=== PATIENT | female | born 1945 | race Caucasian/White ===

== ENCOUNTER → 2016-05-26 | Outpatient (CLI) | payer MEDICARE ==
--- NOTE | 2016-05-26 11:13 | REP ---
BILATERAL MAMMOGRAM, BASELINE STUDY: MLO and CC views of both breasts are performed. Mild scattered fibroglandular tissue is seen bilaterally. There is a lobulated nodule in the outer left breast measuring 1 cm in maximum diameter. Margins appear fairly smooth and well defined. Linear calcification is seen in the wall of the nodule inferomedially. There is no other evidence of mass or clustered microcalcifications. IMPRESSION: ACR 0 incomplete. Lobulated 1 cm nodule outer left breast. Recommend spot compression views and ultrasound to further evaluate. BI-RADS/ACR category 0 mammogram, incomplete. Additional imaging and/or prior images are needed before a final assessment can be assigned. This mammogram was interpreted with the aid of an FDA-approved computer-aided detection system. A. Negative x-ray reports should not delay biopsy if a dominant or clinically suspicious mass is present. B. Four to eight percent of cancers are not identified by x-ray. C. Adenosis and dense breasts may obscure an underlying neoplasm. The patient states she/he had a clinical breast exam in August 2015. The patient letter being requested is M0.
--- NOTE | 2016-05-27 09:07 | DEXA ---
AP SPINE L1 - L4 1.178 -0.1 1.6 LT FEMUR TOTAL 0.910 -0.8 0.7 RT FEMUR TOTAL 0.894 -0.9 0.6 TOTAL BODY TOTAL OTHER DUAL FEMUR FRAX* ASSESSMENT Risk factors: History of adult fractures. 10 year probability of fracture Major osteoporotic fracture 15.2 % Hip fracture 2.0 % COMMENTS: Normal bone densitometry of the spine. There is low bone density of the hips. FOLLOW-UP: Recommendation for the next bone density exam: 2 years. CHELE
== END ==
LOC: M WHC 09:39
PROVIDERS: ATTEND Physician Assistant
DX: M85.851 Other specified disorders of bone density and structure, right thigh (principal); M85.852 Other specified disorders of bone density and structure, left thigh; Z12.31 Encounter for screening mammogram for malignant neoplasm of breast
CPT/HCPCS: 77080; G0202

== ENCOUNTER → 2016-06-14 | Outpatient (CLI) | payer MEDICARE ==
--- NOTE | 2016-06-14 15:21 | REP ---
DIAGNOSTIC MAMMOGRAM OF THE LEFT BREAST WITH LEFT BREAST ULTRASOUND: Diagnostic mammogram of the left breast performed with spot compression views obtained. Correlating with the recent mammogram of 05/26/2016 there is an oval smoothly marginated well defined nodule in the outer left breast. Real-time sonographic evaluation of the outer left breast demonstrates a superficial oval cyst containing some low level echoes diffusely. This appears benign. It measures 8 x 10 x 4 mm. IMPRESSION: ACR 2 benign. The nodule in the outer left breast corresponds to a cyst by ultrasound. Recommend followup mammogram in 1 year. The patient letter being requested is M1. Signed by Chetan Kim MD 06/14/2016 04:46 P
== END ==
LOC: M RAD 12:54
PROVIDERS: ATTEND Physician Assistant
DX: N60.02 Solitary cyst of left breast (principal)
CPT/HCPCS: 76642; G0206

== ENCOUNTER 2017-04-18 08:22 | Emergency (ER) | payer MEDICARE ==
[2017-04-18] MEDS: EMLA CREAM 5GM (LIDOCAINE/PRILOCAINE) TOP (08:52)
[2017-04-18] MEDS ORDERED: POLYSPORIN TOPICAL OINTMENT 15GM As Ordered (09:19)
== END 2017-04-18 09:48 | disposition home or self-care (01) ==
LOC: M ED 08:22
DX: S01.01XA Laceration without foreign body of scalp, initial encounter (principal); S00.03XA Contusion of scalp, initial encounter; W19.XXXA Unspecified fall, initial encounter; Y92.099 Unspecified place in other non-institutional residence as the place of occurrence of the external cause; Y93.9 Activity, unspecified; F32.9 Major depressive disorder, single episode, unspecified; Z79.899 Other long term (current) drug therapy
CPT/HCPCS: 70450

== ENCOUNTER 2017-10-23 18:58 | Emergency (ER) | payer MEDICARE ==
[2017-10-23] MEDS: ONDANSETRON 4MG/2ML VIAL (J2405) IV ×2 (20:17)
[2017-10-23] MEDS: HYDROMORPHONE HCL 0.5 MG/ 0.5 ML SYRINGE (J1170 PER 1) IV ×2 (20:20)
[2017-10-23] MEDS: PERCOCET 5MG/325MG TAB PO ×2 (21:06)
[2017-10-23] MEDS: OXYCODONE/APAP 5MG/325MG(BULK FOR ED) 1 TABLET PO ×2 (21:21)
== END 2017-10-23 22:00 | disposition home or self-care (01) ==
LOC: M ED 22:00
DX: S42.292A Other displaced fracture of upper end of left humerus, initial encounter for closed fracture (principal); V03.99XA Pedestrian with other conveyance injured in collision with car, pick-up truck or van, unspecified whether traffic or nontraffic accident, initial encounter; Y92.099 Unspecified place in other non-institutional residence as the place of occurrence of the external cause; Y93.9 Activity, unspecified; Y99.9 Unspecified external cause status; F32.9 Major depressive disorder, single episode, unspecified; F41.9 Anxiety disorder, unspecified; Z79.899 Other long term (current) drug therapy; Z88.6 Allergy status to analgesic agent
CPT/HCPCS: J2405

== ENCOUNTER → 2018-11-23 | Outpatient (REF) | payer MEDICARE ==
[~2018-11-23] MED LIST: OXYC1TAB23 PO; SERT-155; TRAM50TA2
[2018-11-23 12:40] LABS: BASO # 0.1 10^3/uL (0.0-0.2); BASO % 1.6 % (0.0-1.0); EOS # 0.2 10^3/uL (0.0-0.5); EOS % 4.1 % (0.0-3.0); HEMATOCRIT 42.9 % (36.0-47.0); LYMPH # 2.2 10^3/uL (1.5-5.0); LYMPH % 39.3 % (24.0-44.0); MEAN CORPUSCULAR HEMOGLOBIN 29.1 pg (27.0-33.0); MEAN CORPUSCULAR HGB CONC 32.6 g/dl (32.0-36.5); MEAN CORPUSCULAR VOLUME 89.2 fl (80.0-96.0); MONO # 0.5 10^3/uL (0.0-0.8); MONO % 9.6 % (0.0-5.0); NEUTROPHILS # 2.6 10^3/uL (1.5-8.5); NEUTROPHILS % 45.2 % (36.0-66.0); PLATELET COUNT, AUTOMATED 236 10^3/uL (150-450); RED BLOOD COUNT 4.81 10^6/uL (4.00-5.40); WHITE BLOOD COUNT 5.6 10^3/uL (4.0-10.0)
[2018-11-23 13:36] LABS: ALBUMIN 3.6 GM/DL (3.2-5.2); ALT/SGPT 21 U/L (12-78); BILIRUBIN,TOTAL 0.4 MG/DL (0.2-1.0); BLOOD UREA NITROGEN 18 MG/DL (7-18); CALCIUM LEVEL 8.8 MG/DL (8.8-10.2); CARBON DIOXIDE LEVEL 28 MEQ/L (21-32); CHLORIDE LEVEL 109 MEQ/L (98-107); CHOLESTEROL LEVEL 195 MG/DL (<200); GLOMERULAR FILTRATION RATE > 60.0 (>39); GLUCOSE, FASTING 89 MG/DL (70-100); HDL CHOLESTEROL 65 MG/DL (>40); LDL CHOLESTEROL 111 MG/DL (<100); NON-HDL-C 130 MG/DL; POTASSIUM SERUM 4.1 MEQ/L (3.5-5.1); SODIUM LEVEL 144 MEQ/L (136-145); TOTAL PROTEIN 6.6 GM/DL (6.4-8.2); TRIGLYCERIDES LEVEL 93 MG/DL (<150)
== END ==
LOC: M SFHCLERA 08:44
PROVIDERS: ATTEND Nurse Practitioner Family
DX: Z13.1 Encounter for screening for diabetes mellitus (principal); Z13.220 Encounter for screening for lipoid disorders; E78.00 Pure hypercholesterolemia, unspecified

== ENCOUNTER 2019-07-07 09:54 | Emergency (ER) | payer MEDICARE, OTHER ==
[~2019-07-07] VITALS: Ht 160 cm; Wt 61.0 kg
[~2019-07-07 09:54] MED LIST changes: -SERT-155; +SERT50TA29
[2019-07-07] MEDS ORDERED: AMLO2.5T3 (10:02)
[2019-07-07] MEDS ORDERED: SERT50TA29 (10:02)
[2019-07-07] MEDS: METOPROLOL 5 MG/5 ML VIAL IV SCH ×3 (10:20→10:45)
[2019-07-07 10:36] LABS: BASO # 0.1 10^3/uL (0.0-0.2); BASO % 1.1 % (0.0-1.0); EOS # 0.1 10^3/uL (0.0-0.5); EOS % 1.6 % (0.0-3.0); HEMOGLOBIN 12.5 g/dl (12.0-15.5); LYMPH # 1.7 10^3/uL (1.5-5.0); LYMPH % 22.8 % (24.0-44.0); MEAN CORPUSCULAR HEMOGLOBIN 28.8 pg (27.0-33.0); MEAN CORPUSCULAR HGB CONC 32.9 g/dl (32.0-36.5); MEAN CORPUSCULAR VOLUME 87.6 fl (80.0-96.0); MONO # 0.8 10^3/uL (0.0-0.8); MONO % 10.3 % (0.0-5.0); NEUTROPHILS # 4.7 10^3/uL (1.5-8.5); NEUTROPHILS % 63.9 % (36.0-66.0); PLATELET COUNT, AUTOMATED 343 10^3/uL (150-450); RED BLOOD COUNT 4.34 10^6/uL (4.00-5.40); WHITE BLOOD COUNT 7.4 10^3/uL (4.0-10.0)
[2019-07-07 10:42] LABS: INR 1.04; PARTIAL THROMBOPLASTIN TIME 27.5 SECONDS (25.0-38.4); PROTHROMBIN TIME 13.4 SECONDS (11.8-14.0)
--- NOTE | 2019-07-07 11:07 | REP ---
Clinical: Cough and dyspnea . Comparison: None . Findings: The mediastinum and cardiac silhouette are stable and within normal limits for portable technique. The lung holguin demonstrate chronic-appearing interstitial changes and evidence for underlying emphysematous disease without focal consolidation, effusion, or pneumothorax. Minimal left basilar atelectasis cannot be excluded. Impression: Chronic-appearing changes. No focal consolidation or effusion. Electronically Signed by Joe Alas MD 07/07/2019 10:58 A
[2019-07-07 11:12] LABS: ALBUMIN 3.4 GM/DL (3.2-5.2); ALT/SGPT 33 U/L (12-78); BILIRUBIN,DIRECT 0.2 MG/DL (0.0-0.2); BILIRUBIN,TOTAL 0.5 MG/DL (0.2-1.0); CK-MB VALUE MASS 2.4 NG/ML (<3.6); CPK CREATINE PHOSPHOKINASE 61 U/L (26-192); FREE T4 1.53 NG/DL (0.76-1.46); LIPASE 263 U/L (73-393); MB/CK RELATIVE INDEX 3.93 (< OR =4); NT-PRO BNP 1263 PG/ML (<125); THYROID STIMULATING HORMONE < 0.005 uIU/ML (0.358-3.740); TOTAL PROTEIN 7.2 GM/DL (6.4-8.2); TROPONIN I < 0.02 NG/ML (< 0.10)
[2019-07-07] MEDS ORDERED: APIXABAN 5 MG TAB (ELIQUIS) PO ONE (11:45)
[2019-07-07] MEDS ORDERED: NADOLOL 20MG TABLET PO ONE (12:10)
[2019-07-07] MEDS ORDERED: NADO40TA PO (12:29)
[2019-07-07] MEDS ORDERED: ELIQ5TAB PO (12:29)
[2019-07-07 12:45] VITALS: BP 161/85
[2019-07-07 12:49] VITALS: BP 161/85
--- NOTE | 2019-07-07 19:30 | ECGEPIP ---
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
--- NOTE | 2019-07-07 19:31 | ECGEPIP ---
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
== END 2019-07-07 13:02 | disposition home or self-care (01) ==
LOC: M ED 09:54
DX: I48.91 Unspecified atrial fibrillation (principal); R06.09 Other forms of dyspnea; I10 Essential (primary) hypertension; Z87.891 Personal history of nicotine dependence; Z88.5 Allergy status to narcotic agent

== ENCOUNTER → 2019-08-01 | Outpatient (CLI) | payer MEDICARE ==
[~2019-08-01] MED LIST changes: +AMLO2.5T3; +ELIQ5TAB PO; +NADO40TA PO
--- NOTE | 2019-08-02 14:19 | REP ---
THYROID UPTAKE AND SCAN: Following the oral administration of 427.0 microcuries iodine 123 as sodium iodide, thyroid uptake is measured. The 2-hour uptake is 4.2%, normal range is 6-12%. 25-hour uptake is 20.85%, normal, range 25-35%. Thyroid scan shows both lobes to be relatively normal in size, measuring slightly greater than 4 cm in length. A nodular area of uptake is seen along the medial left lower pole approximately 3 cm in diameter. This could represent a warm nodule. Recommend correlation with thyroid ultrasound. Electronically Signed by Chetan Kim MD 08/02/2019 05:05 P
== END ==
LOC: M RAD 10:11
PROVIDERS: ATTEND Family Medicine
DX: E05.90 Thyrotoxicosis, unspecified without thyrotoxic crisis or storm (principal)
CPT/HCPCS: 78014; A9516

== ENCOUNTER → 2019-08-07 | Outpatient (REF) | payer MEDICARE ==
[2019-08-08 12:27] LABS: THYROID STIMULATING HORMONE < 0.005 uIU/ML (0.358-3.740)
== END ==
LOC: M SFHCLERA 15:59
PROVIDERS: ATTEND Family Medicine
DX: E05.90 Thyrotoxicosis, unspecified without thyrotoxic crisis or storm (principal)

== ENCOUNTER → 2019-08-17 | Outpatient (REF) | payer MEDICARE ==
[2019-08-17 18:47] LABS: ALBUMIN 3.7 GM/DL (3.2-5.2); BILIRUBIN,TOTAL 0.3 MG/DL (0.2-1.0); CALCIUM LEVEL 9.4 MG/DL (8.8-10.2); CREATININE FOR GFR 1.21 MG/DL (0.55-1.30); GLOMERULAR FILTRATION RATE 46.4 (>39); POTASSIUM SERUM 4.7 MEQ/L (3.5-5.1); TOTAL PROTEIN 7.1 GM/DL (6.4-8.2)
== END ==
LOC: M SFHCLERA 15:06
PROVIDERS: ATTEND Family Medicine
DX: R06.00 Dyspnea, unspecified (principal)

== ENCOUNTER → 2019-08-22 | Outpatient (CLI) | payer MEDICARE ==
[2019-08-22 16:28] LABS: HEMATOCRIT 40.6 % (36.0-47.0); MEAN CORPUSCULAR HEMOGLOBIN 27.9 pg (27.0-33.0); MEAN CORPUSCULAR VOLUME 87.1 fl (80.0-96.0); PLATELET COUNT, AUTOMATED 244 10^3/uL (150-450); RED BLOOD COUNT 4.66 10^6/uL (4.00-5.40); WHITE BLOOD COUNT 6.6 10^3/uL (4.0-10.0)
== END ==
LOC: M LRY 14:19
PROVIDERS: ATTEND Nurse Practitioner Family
DX: I48.91 Unspecified atrial fibrillation (principal)

== ENCOUNTER → 2019-08-29 | Outpatient (CLI) | payer MEDICARE ==
--- NOTE | 2019-08-29 10:31 | PFTRPT ---
Height: 63.00 Inches Weight: 116.00 Lbs BSA: 1.53 Diagnosis: R06 DATE OF PROCEDURE: 08/29/2019 ORDERED BY: Dr. Yovana Jade Spirometry: Pre and post bronchodilator study of excellent technical quality. Some difficulty with required maneuvers was identified. Forced vital capacity reduced. FEV1 out of proportion. Obstructive index is, therefore, reduced. Flow Volume Loop: Expiratory limb of the flow volume loop consistent with flow rate limitation. Significant bronchodilator response is identified. Lung Volumes: Total lung capacity normal. Residual volume consistent with air trapping. Diffusing Capacity: Diffusing capacity severely reduced and does correct for alveolar volume. Hemoglobin: Hemoglobin acceptable at 14.6. Airway Mechanics: Airway resistance elevated with a concomitant decrease in airway conductance. IMPRESSION: Moderate obstructive ventilatory impairment with underlying air trapping. Favorable bronchodilator response. Diffusing capacity corrects for alveolar volume. MTDD
== END ==
LOC: M CARPUL 09:37
PROVIDERS: ATTEND Family Medicine
DX: R06.00 Dyspnea, unspecified (principal)

== ENCOUNTER → 2019-09-13 | Outpatient (CLI) | payer MEDICARE ==
[~2019-09-13] MED LIST changes: +ISOVUE-370 76% 100ML VIAL As Ordered ONE
--- NOTE | 2019-09-14 00:41 | REP ---
REASON: Dyspnea. There are no priors for comparison. CONTRAST: 100 mL Isovue-370. There are borderline mediastinal and right hilar lymph nodes. There are no pleural or pericardial effusions. There is a large nodule arising from the inferior aspect of the left lobe of the thyroid gland measuring 2.7 cm. The imaged osseous structures are within normal limits for the patient's age. Evaluation of the lung holguin shows rather marked appearing chronic emphysematous changes with evidence of parenchymal bullae and pleural blebs, particularly in the lung apical regions. Scattered asymmetric densities are seen bilaterally. There is a pleural-based 6 mm sized nodule in the left lower lobe. There is evidence of biapical pleural parenchymal scarring. IMPRESSION: 1. Borderline adenopathy, as described above. 2. A 6 mm sized pleural-based nodule in the left lower lobe. Other 2 and 3 mm sized nodules are scattered throughout the lung holguin, too numerous to count or individually assess. According to the revised Fleischner Society criteria, the 6 mm sized nodule represents a category 4A lesion, for which a 3-month followup CT examination of the chest is recommended since there are no priors for comparison. 3. Rather advanced appearing emphysematous changes, as described above. 4. There is a thyroid nodule on the left, as described above. Followup with thyroid ultrasonography is recommended. Electronically Signed by Ye Shelton DO 09/14/2019 08:55 A
== END ==
LOC: M RAD 14:10
PROVIDERS: ATTEND Family Medicine
DX: R06.00 Dyspnea, unspecified (principal)
CPT/HCPCS: 71260; Q9967

== ENCOUNTER → 2019-10-05 | Outpatient (REF) | payer MEDICARE ==
[~2019-10-05] MED LIST changes: -ISOVUE-370 76% 100ML VIAL As Ordered ONE
[2019-11-22 13:56] LABS: FREE T4 0.82 NG/DL (0.76-1.46); THYROID STIMULATING HORMONE 2.59 uIU/ML (0.358-3.740)
== END ==
LOC: M PLALAB 13:19
PROVIDERS: ATTEND Internal Medicine Endocrinology, Diabetes & Metabolism
DX: E05.20 Thyrotoxicosis with toxic multinodular goiter without thyrotoxic crisis or storm (principal)

== ENCOUNTER → 2019-12-12 | Outpatient (CLI) | payer MEDICARE ==
--- NOTE | 2019-12-18 09:20 | REP ---
CT CHEST WITHOUT CONTRAST HISTORY: Pulmonary nodule. COMPARISON: Chest CT study 09/13/2019. CT FINDINGS: There is a 2.9 cm left thyroid nodule again seen along the inferior aspect of the gland unchanged. Granulomatous lymph node calcifications are seen in the pretracheal and precarinal region of the mediastinum. There are granulomatous calcifications scattered about the spleen. The gallbladder is surgically absent. Normal adrenal glands are seen. No pleural or pericardial effusion is seen. No new hilar or mediastinal mass or adenopathy has developed. There is advanced hyperinflation emphysema chronic obstructive pulmonary disease (COPD) change bilaterally. A 6-mm nodule pleural-based in the left lower lobe is again seen unchanged compared to the prior study of 09/13/2019. This is displayed on Page 71 of 102 in Series 201. There are scattered smaller nodules again noted unchanged. No new pulmonary nodule is appreciated. No infiltrate or mass lesion is seen. Study is otherwise unremarkable. IMPRESSION: Stable chest CT findings. Granulomatous calcifications. Scattered subcentimeter pulmonary nodules the larges of which is 6 mm left lower lobe. Repeat CT study suggested in six to nine months. Stable left thyroid nodule also noted. MTDD
== END ==
LOC: M RAD 11:35
PROVIDERS: ATTEND Family Medicine
DX: R91.1 Solitary pulmonary nodule (principal)

== ENCOUNTER → 2019-12-26 | Outpatient (CLI) | payer MEDICARE ==
[2019-12-26 16:17] LABS: FREE T4 0.83 NG/DL (0.76-1.46); THYROID STIMULATING HORMONE 0.638 uIU/ML (0.358-3.740)
== END ==
LOC: M LAB 14:37
PROVIDERS: ATTEND Internal Medicine Endocrinology, Diabetes & Metabolism
DX: E05.20 Thyrotoxicosis with toxic multinodular goiter without thyrotoxic crisis or storm (principal)

== ENCOUNTER → 2020-03-20 | Outpatient (CLI) | payer MEDICARE ==
[2020-03-20 17:47] LABS: FREE T4 0.98 NG/DL (0.76-1.46); THYROID STIMULATING HORMONE 0.205 uIU/ML (0.358-3.740)
== END ==
LOC: M LAB 16:06
PROVIDERS: ATTEND Internal Medicine Endocrinology, Diabetes & Metabolism
DX: E05.20 Thyrotoxicosis with toxic multinodular goiter without thyrotoxic crisis or storm (principal)

== ENCOUNTER → 2020-05-06 | Outpatient (CLI) | payer MEDICARE ==
[2020-05-06 12:50] LABS: FREE T4 0.95 NG/DL (0.76-1.46); THYROID STIMULATING HORMONE 0.461 uIU/ML (0.358-3.740)
== END ==
LOC: M LAB 11:40
PROVIDERS: ATTEND Nurse Practitioner Family
DX: E05.20 Thyrotoxicosis with toxic multinodular goiter without thyrotoxic crisis or storm (principal)

== ENCOUNTER → 2020-07-15 | Outpatient (CLI) | payer MEDICARE ==
--- NOTE | 2020-07-15 13:18 | REP ---
INDICATION: PULMONARY NODULE COMPARISON: Multiple the latest 12/12/2019 TECHNIQUE: Standard helical technique without the administration of intravenous contrast FINDINGS: The thyroid nodule seen on the prior exams is unchanged. Benign mediastinal calcifications are again noted status quo. The imaged upper abdomen and imaged osseous structures are unchanged. This is with the exception of a now partially imaged at least 3.6 cm sized round smoothly marginated low-density structure having slightly higher than water density Hounsfield unit readings. The osseous structures are stable and intact Evaluation of the lung holguin shows advanced but stable appearing emphysematous changes with parenchymal bulla and pleural blebs status quo. There are multiple stable scattered pulmonary nodules. No new abnormal nodules, masses, or opacities have developed. There are stable areas of irregular pleural thickening. IMPRESSION: Stable lung rads category 2 S according to the revised Fleischner society criteria. There is a partially imaged simple appearing right renal cyst as described above, however, ultrasonography is recommended for complete evaluation. <Electronically signed by Ye Shelton > 07/15/20 [id number]
== END ==
LOC: M RAD 10:26
PROVIDERS: ATTEND Family Medicine
DX: R91.1 Solitary pulmonary nodule (principal); N28.1 Cyst of kidney, acquired

== ENCOUNTER → 2020-08-19 | Outpatient (CLI) | payer MEDICARE ==
--- NOTE | 2020-08-19 13:16 | REP ---
INDICATION: CYST RT KIDNEY. COMPARISON: No prior ultrasound. Prior CT 07/15/2020 showed a partially imaged right renal cyst. TECHNIQUE: Transabdominal and intercostal scanning FINDINGS: Multiple ultrasonographic images of the right kidney show the right kidney to measure 8.3 x 4.5 x 3.9 cm. . The renal cortical echotexture is unremarkable. There are no masses. There is good corticomedullary differentiation. There is no hydronephrosis. There are no perinephric fluid collections. In the interpolar region is a 3.4 cm sized round anechoic structure which exhibits posterior wall enhancement and increased through transmission. There are no septations or mural nodules. Multiple ultrasonographic images of the left kidney show the left kidney to measure 8.5 x 3.9 x 4.7 cm.. The renal cortical echotexture is unremarkable. There are no masses. There is good corticomedullary differentiation. There is no hydronephrosis. There are no perinephric fluid collections. IMPRESSION: Simple Bosniak class 1 right renal cyst as described above. <Electronically signed by Ye Shelton > 08/19/20 [id number]
== END ==
LOC: M RAD 12:26
PROVIDERS: ATTEND Family Medicine
DX: N28.1 Cyst of kidney, acquired (principal)

== ENCOUNTER → 2020-08-22 | Outpatient (CLI) | payer MEDICARE ==
[2020-08-22 18:14] LABS: THYROID STIMULATING HORMONE 0.359 uIU/ML (0.358-3.740)
== END ==
LOC: M LAB 17:05
PROVIDERS: ATTEND Internal Medicine Endocrinology, Diabetes & Metabolism
DX: E05.20 Thyrotoxicosis with toxic multinodular goiter without thyrotoxic crisis or storm (principal)

== ENCOUNTER → 2020-10-04 | Outpatient (CLI) | payer MEDICARE ==
[2020-10-04 16:27] LABS: THYROID STIMULATING HORMONE 0.524 uIU/ML (0.358-3.740)
== END ==
LOC: M LAB 15:34
PROVIDERS: ATTEND Nurse Practitioner Family
DX: E05.20 Thyrotoxicosis with toxic multinodular goiter without thyrotoxic crisis or storm (principal)

== ENCOUNTER → 2020-10-04 | Outpatient (CLI) | payer MEDICARE ==
[2020-10-04 15:52] LABS: BASO # 0.1 10^3/uL (0.0-0.2); BASO % 1.3 % (0.0-1.0); EOS # 0.2 10^3/uL (0.0-0.5); EOS % 2.7 % (0.0-3.0); HEMOGLOBIN 13.4 g/dl (12.0-15.5); LYMPH # 2.2 10^3/uL (1.5-5.0); LYMPH % 35.3 % (24.0-44.0); MEAN CORPUSCULAR HEMOGLOBIN 29.6 pg (27.0-33.0); MEAN CORPUSCULAR HGB CONC 32.7 g/dl (32.0-36.5); MEAN CORPUSCULAR VOLUME 90.5 fl (80.0-96.0); MONO # 0.6 10^3/uL (0.0-0.8); MONO % 9.8 % (2.0-8.0); NEUTROPHILS # 3.2 10^3/uL (1.5-8.5); NEUTROPHILS % 50.7 % (36.0-66.0); PLATELET COUNT, AUTOMATED 247 10^3/uL (150-450); RED BLOOD COUNT 4.53 10^6/uL (4.00-5.40); WHITE BLOOD COUNT 6.3 10^3/uL (4.0-10.0)
[2020-10-04 16:20] LABS: ALBUMIN 3.6 GM/DL (3.2-5.2); BILIRUBIN,TOTAL 0.3 MG/DL (0.2-1.0); CHOLESTEROL RISK RATIO 3.218 (<5); CREATININE FOR GFR 0.98 MG/DL (0.55-1.30); GLOMERULAR FILTRATION RATE 59.1 (>39); POTASSIUM SERUM 3.9 MEQ/L (3.5-5.1); TOTAL PROTEIN 6.8 GM/DL (6.4-8.2)
== END ==
LOC: M LAB 15:32
PROVIDERS: ATTEND Student in an Organized Health Care Education/Training Program
DX: I10 Essential (primary) hypertension (principal); E78.2 Mixed hyperlipidemia; Z00.00 Encounter for general adult medical examination without abnormal findings

== ENCOUNTER → 2020-12-03 | Outpatient (CLI) | payer MEDICARE ==
[2020-12-03 18:39] LABS: FREE T4 0.95 NG/DL (0.76-1.46); THYROID STIMULATING HORMONE 0.353 uIU/ML (0.358-3.740)
== END ==
LOC: M LAB 15:51
PROVIDERS: ATTEND Nurse Practitioner Family
DX: E05.20 Thyrotoxicosis with toxic multinodular goiter without thyrotoxic crisis or storm (principal)

== ENCOUNTER → 2021-01-28 | Outpatient (CLI) | payer MEDICARE ==
--- NOTE | 2021-01-28 15:30 | REPMRS ---
Patient History The patient states she has not had a clinical breast exam in over a year. Family history of prostate cancer at age 50 or over in father. Tomosynthesis is performed. Volpara breast density is b. [facility] lifetime risk of breast cancer 2.8%. Patient states no breast complaints today. Patient has signed MRS History Sheet. Digital Woman Screen Mammo: January 28, 2021 - Exam #: [id number] Bilateral CC and MLO view(s) were taken. Technologist: Sabine Fine Technologist Prior study comparison: June 14, 2016, left breast digital mammo diagnostic unilateral, performed at [facility]. May 26, 2016, digital woman screen mammo performed at [facility]. FINDINGS: There are scattered fibroglandular densities. There is a fairly symmetric fibroglandular pattern in both breasts. There has been no interval development of masses, areas of architectural distortion or clusters of microcalcifications typical of malignancy. The previously noted cyst in the lateral left breast has decreased in size. Assessment: BI-RADS/ACR category 2 mammogram. Benign Findings. Recommendation Routine screening mammogram of both breasts in 1 year (for women over age 40). This mammogram was interpreted with the aid of an FDA-approved computer-aided dectection system. Electronically Signed By: Chetan Kim MD 01/28/21 [id number]
== END ==
LOC: M WHC 14:00
PROVIDERS: ATTEND Student in an Organized Health Care Education/Training Program
DX: Z12.31 Encounter for screening mammogram for malignant neoplasm of breast (principal)

== ENCOUNTER → 2021-11-12 | Outpatient (REF) | payer MEDICARE | LOC: M LAB REF 11:38 | PROVIDERS: ATTEND Internal Medicine Pulmonary Disease | DX: J44.9 Chronic obstructive pulmonary disease, unspecified (principal) ==

== ENCOUNTER → 2021-11-20 | Outpatient (CLI) | payer MEDICARE ==
[2021-11-20 12:05] LABS: CREATININE FOR GFR 0.99 MG/DL (0.55-1.30)
[2021-11-20 12:06] LABS: ALBUMIN 3.7 GM/DL (3.2-5.2); BILIRUBIN,TOTAL 0.3 MG/DL (0.2-1.0); CALCIUM LEVEL 9.3 MG/DL (8.8-10.2); GLOMERULAR FILTRATION RATE 58.2 (>39); POTASSIUM SERUM 3.7 MEQ/L (3.5-5.1); TOTAL PROTEIN 6.9 GM/DL (6.4-8.2)
== END ==
LOC: M RAD 10:15
PROVIDERS: ATTEND Student in an Organized Health Care Education/Training Program
DX: I10 Essential (primary) hypertension (principal); J18.9 Pneumonia, unspecified organism

== ENCOUNTER → 2021-12-15 | Outpatient (CLI) | payer MEDICARE | LOC: M PLAIMG 10:42 | PROVIDERS: ATTEND Internal Medicine Pulmonary Disease | DX: R91.8 Other nonspecific abnormal finding of lung field (principal) ==

== ENCOUNTER → 2022-08-04 | Outpatient (CLI) | payer MEDICARE ==
[2022-08-04 18:06] LABS: FREE T4 1.05 NG/DL (0.89-1.76); THYROID STIMULATING HORMONE 0.413 uIU/ML (0.55-4.78)
== END ==
LOC: M LAB 16:01
PROVIDERS: ATTEND Internal Medicine Endocrinology, Diabetes & Metabolism
DX: E05.20 Thyrotoxicosis with toxic multinodular goiter without thyrotoxic crisis or storm (principal)

== ENCOUNTER → 2022-09-14 | Outpatient (CLI) | payer MEDICARE ==
[2022-09-14 09:26] LABS: BASO # 0.1 10^3/uL (0.0-0.2); BASO % 1.3 % (0.0-1.0); EOS # 0.1 10^3/uL (0.0-0.5); EOS % 2.7 % (0.0-3.0); HEMATOCRIT 44.1 % (36.0-47.0); HEMOGLOBIN 14.1 g/dl (12.0-15.5); LYMPH # 1.5 10^3/uL (1.5-5.0); LYMPH % 28.9 % (24.0-44.0); MEAN CORPUSCULAR HEMOGLOBIN 28.8 pg (27.0-33.0); MEAN CORPUSCULAR VOLUME 90.2 fl (80.0-96.0); MONO # 0.5 10^3/uL (0.0-0.8); MONO % 9.4 % (2.0-8.0); NEUTROPHILS % 57.5 % (36.0-66.0); PLATELET COUNT, AUTOMATED 260 10^3/uL (150-450); RED BLOOD COUNT 4.89 10^6/uL (4.00-5.40); WHITE BLOOD COUNT 5.2 10^3/uL (4.0-10.0)
[2022-09-14 09:55] LABS: ALBUMIN 3.5 G/DL (3.2-5.2); BILIRUBIN,TOTAL 0.5 MG/DL (0.3-1.2); CALCIUM LEVEL 10.2 MG/DL (8.3-10.6); CHOLESTEROL RISK RATIO 3.35 (<5); CREATININE FOR GFR 1.04 MG/DL (0.55-1.30); GLOMERULAR FILTRATION RATE 54.8 (>39); HDL CHOLESTEROL 57.2 MG/DL (>40); LDL CHOLESTEROL 114.4 MG/DL (<100); NON-HDL-C 134.8 MG/DL; POTASSIUM SERUM 4.7 MMOL/L (3.5-5.1); TOTAL PROTEIN 6.3 G/DL (5.7-8.2)
== END ==
LOC: M LAB 08:35
PROVIDERS: ATTEND Student in an Organized Health Care Education/Training Program
DX: I10 Essential (primary) hypertension (principal)

== ENCOUNTER → 2022-10-05 | Outpatient (CLI) | payer MEDICARE | LOC: M RAD 13:00 | PROVIDERS: ATTEND Internal Medicine Pulmonary Disease | DX: R91.8 Other nonspecific abnormal finding of lung field (principal); J43.2 Centrilobular emphysema; I25.10 Atherosclerotic heart disease of native coronary artery without angina pectoris; N28.1 Cyst of kidney, acquired; E05.90 Thyrotoxicosis, unspecified without thyrotoxic crisis or storm ==

== ENCOUNTER 2024-03-15 03:56 | Inpatient (IN) | payer MEDICARE, OTHER ==
[~2024-03-15] VITALS: Ht 160 cm; Wt 64.4 kg
[~2024-03-15 03:56] MED LIST changes: -NADO40TA PO; +NADO40TA40 PO
[2024-03-15 04:27] LABS: BASO # 0.1 10^3/uL (0.0-0.2); BASO % 0.8 % (0.0-1.0); EOS # 0.3 10^3/uL (0.0-0.5); EOS % 3.5 % (0.0-3.0); HEMATOCRIT 40.3 % (36.0-47.0); HEMOGLOBIN 12.8 g/dl (12.0-15.5); LYMPH # 0.9 10^3/uL (1.5-5.0); LYMPH % 9.8 % (24.0-44.0); MEAN CORPUSCULAR HEMOGLOBIN 28.3 pg (27.0-33.0); MEAN CORPUSCULAR HGB CONC 31.8 g/dl (32.0-36.5); MEAN CORPUSCULAR VOLUME 89.2 fl (80.0-96.0); MONO % 11.3 % (2.0-8.0); NEUTROPHILS # 6.5 10^3/uL (1.5-8.5); NEUTROPHILS % 74.4 % (36.0-66.0); PLATELET COUNT, AUTOMATED 319 10^3/uL (150-450); RED BLOOD COUNT 4.52 10^6/uL (4.00-5.40); WHITE BLOOD COUNT 8.8 10^3/uL (4.0-10.0)
[2024-03-15] MEDS: METOPROLOL 5 MG/5 ML VIAL IV PRN (04:33)
[2024-03-15] MEDS: METOPROLOL TART 50 MG TAB PO ONE (05:02)
[2024-03-15] MEDS: dilTIAZem 25MG/5ML VIAL IV STA (05:25)
[2024-03-15 05:31] LABS: BLOOD UREA NITROGEN 25 MG/DL (9-23); CALCIUM LEVEL 8.9 MG/DL (8.3-10.6); CARBON DIOXIDE LEVEL 24 MMOL/L (20-31); CHLORIDE LEVEL 109 MMOL/L (98-107); CK-MB VALUE MASS 2.3 NG/ML (<3.6); GLOMERULAR FILTRATION RATE > 60.0 (>39); GLUCOSE, FASTING 110 MG/DL (74-106); POTASSIUM SERUM 4.2 MMOL/L (3.5-5.1); SODIUM LEVEL 145 MMOL/L (136-145)
[2024-03-15 05:42] LABS: CPK CREATINE PHOSPHOKINASE 107 U/L (34-145); MB/CK RELATIVE INDEX 2.14 (< OR =4)
[2024-03-15] MEDS ORDERED: ISOVUE-370 76% 100ML VIAL As Ordered ONE (05:53)
[2024-03-15 07:13] LABS: CK-MB VALUE MASS 2.2 NG/ML (<3.6)
[2024-03-15 07:14] LABS: MB/CK RELATIVE INDEX 2.34 (< OR =4)
[2024-03-15] MEDS ORDERED: STIO1AER INH (08:08)
[2024-03-15] MEDS ORDERED: PROA1AER2 INH (08:08)
[2024-03-15] MEDS ORDERED: METO1TAB87 PO (08:08)
[2024-03-15] MEDS ORDERED: HOME MED LIST COMPLETE! XX SCH (08:10)
[2024-03-15] MEDS: methylPREDNISolone 125MG 2ML VIAL IV ONE (09:03)
[2024-03-15] MEDS: AZITHROMYCIN 250MG TABLET PO ONE (09:03)
[2024-03-15] MEDS: cefTRIAXone SOD 1 GM in DEXTROSE 5% (D5W) ADV/MINI-BAG 50 ML IV ONE (09:04)
[2024-03-15] MEDS ORDERED: IPRATROPIUM 0.02% SOLN 0.5MG 2.5ML NEB INH PRN (10:10)
[2024-03-15] MEDS ORDERED: LEVALBUTEROL 1.25MG 0.5ML CONCENTRATE NEB INH PRN (10:10)
[2024-03-15 10:26] LABS: THYROXINE (T4) 7.1 UG/DL (4.5-10.9)
[2024-03-15 10:27] LABS: FREE THYROXINE INDEX 3.4 % (1.3-4.8); T UPTAKE 48.4 % (22.5-37.0)
[2024-03-15 10:50] LABS: THYROID STIMULATING HORMONE 0.221 uIU/ML (0.55-4.78)
[2024-03-15] MEDS: MIDODRINE 5 MG TAB PO SCH (11:00)
[2024-03-15 11:14] LABS: INR 1.07; PARTIAL THROMBOPLASTIN TIME 31.6 SECONDS (24.8-34.2); PROTHROMBIN TIME 14.3 SECONDS (12.5-14.5)
[2024-03-15 11:28] LABS: CK-MB VALUE MASS 2.7 NG/ML (<3.6)
[2024-03-15 11:30] LABS: MB/CK RELATIVE INDEX 2.84 (< OR =4)
[2024-03-15] MEDS: METOPROLOL TART 25 MG TABLET PO SCH (11:34)
[2024-03-15] MEDS: APIXABAN 5 MG TAB (ELIQUIS) PO SCH (11:34)
[2024-03-15] MEDS: DOXYCYCLINE HYCLATE 100MG TABLET PO SCH (11:34)
[2024-03-15] MEDS: DIGOXIN INJ 0.5 MG/2 ML AMP IV ONE ×3 (11:35→23:50)
[2024-03-15] MEDS: IPRATROPIUM 0.02% SOLN 0.5MG 2.5ML NEB INH SCH (11:57)
[2024-03-15] MEDS: LEVALBUTEROL 1.25MG 0.5ML CONCENTRATE NEB INH SCH (11:57)
[2024-03-15 12:30] VITALS: BP 133/87; TEMP 97.5; O2SAT 96
[2024-03-15 13:00] VITALS: O2SAT 94
[2024-03-15 16:21] VITALS: BP 141/90; TEMP 98; O2SAT 93
[2024-03-15] MEDS: methylPREDNISolone 40MG 1ML VIAL IV SCH (17:33)
[2024-03-15 19:37] VITALS: BP 127/74; TEMP 98.1; O2SAT 95
[2024-03-15 23:44] VITALS: BP 133/82; TEMP 98.1; O2SAT 93
[2024-03-16] VITALS (7 sets, daily range): BP systolic 119–164; BP diastolic 72–88; TEMP 97.6–98.6; O2SAT 88–99
[2024-03-16 08:03] LABS: BASO % 0.1 % (0.0-1.0); HEMATOCRIT 38.4 % (36.0-47.0); HEMOGLOBIN 12.5 g/dl (12.0-15.5); LYMPH # 1.1 10^3/uL (1.5-5.0); LYMPH % 5.3 % (24.0-44.0); MEAN CORPUSCULAR HEMOGLOBIN 28.9 pg (27.0-33.0); MEAN CORPUSCULAR HGB CONC 32.6 g/dl (32.0-36.5); MEAN CORPUSCULAR VOLUME 88.7 fl (80.0-96.0); MONO # 0.5 10^3/uL (0.0-0.8); MONO % 2.7 % (2.0-8.0); NEUTROPHILS # 18.2 10^3/uL (1.5-8.5); NEUTROPHILS % 91.4 % (36.0-66.0); PLATELET COUNT, AUTOMATED 371 10^3/uL (150-450); RED BLOOD COUNT 4.33 10^6/uL (4.00-5.40); WHITE BLOOD COUNT 19.9 10^3/uL (4.0-10.0)
[2024-03-16] MEDS: cefTRIAXone SOD 2 GM in DEXTROSE 5% (D5W) ADV/MINI-BAG 50 ML IV SCH (08:10)
[2024-03-16] MEDS: DIGOXIN INJ 0.5 MG/2 ML AMP IV STA (08:10)
[2024-03-16 08:19] LABS: BLOOD UREA NITROGEN 25 MG/DL (9-23); CALCIUM LEVEL 8.7 MG/DL (8.3-10.6); CARBON DIOXIDE LEVEL 30 MMOL/L (20-31); CHLORIDE LEVEL 111 MMOL/L (98-107); CREATININE FOR GFR 0.93 MG/DL (0.55-1.30); GLOMERULAR FILTRATION RATE > 60.0 (>39); GLUCOSE, FASTING 139 MG/DL (74-106); POTASSIUM SERUM 4.5 MMOL/L (3.5-5.1); SODIUM LEVEL 145 MMOL/L (136-145)
[2024-03-16] MEDS: METOPROLOL TART 50 MG TAB PO SCH (12:16)
[2024-03-17] VITALS (7 sets, daily range): BP systolic 138–179; BP diastolic 72–100; TEMP 96.9–98; O2SAT 91–97
[2024-03-17 06:35] LABS: BASO % 0.2 % (0.0-1.0); HEMATOCRIT 38.9 % (36.0-47.0); HEMOGLOBIN 12.6 g/dl (12.0-15.5); LYMPH # 2.2 10^3/uL (1.5-5.0); LYMPH % 9.4 % (24.0-44.0); MEAN CORPUSCULAR HEMOGLOBIN 28.6 pg (27.0-33.0); MEAN CORPUSCULAR HGB CONC 32.4 g/dl (32.0-36.5); MEAN CORPUSCULAR VOLUME 88.4 fl (80.0-96.0); MONO # 1.2 10^3/uL (0.0-0.8); NEUTROPHILS # 19.3 10^3/uL (1.5-8.5); NEUTROPHILS % 84.4 % (36.0-66.0); PLATELET COUNT, AUTOMATED 428 10^3/uL (150-450); WHITE BLOOD COUNT 22.9 10^3/uL (4.0-10.0)
[2024-03-17 06:56] LABS: BLOOD UREA NITROGEN 27 MG/DL (9-23); CALCIUM LEVEL 9.8 MG/DL (8.3-10.6); CARBON DIOXIDE LEVEL 30 MMOL/L (20-31); CHLORIDE LEVEL 106 MMOL/L (98-107); CREATININE FOR GFR 0.93 MG/DL (0.55-1.30); GLOMERULAR FILTRATION RATE > 60.0 (>39); GLUCOSE, FASTING 94 MG/DL (74-106); SODIUM LEVEL 144 MMOL/L (136-145)
[2024-03-17] MEDS: DIGOXIN INJ 0.5 MG/2 ML AMP IV STA (08:14)
[2024-03-17] MEDS: predniSONE 20 MG TAB PO SCH (08:14)
[2024-03-17] MEDS: METOPROLOL TARTRATE 100MG TAB PO ONE (08:49)
[2024-03-17] MEDS: CETIRIZINE (ZyrTEC) 10 MG TAB PO SCH (09:56)
[2024-03-17] MEDS: guaiFENesin ER TABLET 600 MG TAB PO SCH (09:56)
[2024-03-17] MEDS: MONTELUKAST 10 MG TAB PO SCH (09:56)
[2024-03-17] MEDS: FLUTICASONE PROP 0.05% NASAL SPRAY 16 GM (FLONASE) NARES SCH (10:27)
[2024-03-17] MEDS: BENZONATATE 100MG CAPSULE PO SCH (10:27)
[2024-03-17] MEDS: methylPREDNISolone 125MG 2ML VIAL IV SCH (13:53)
[2024-03-17] MEDS ORDERED: DIGOXIN INJ 0.5 MG/2 ML AMP IV ONE ×2 (14:00→20:00)
[2024-03-17 15:28] LABS: PROCALCITONIN 0.58 ng/ml
[2024-03-17] MEDS: methylPREDNISolone 40MG 1ML VIAL IV SCH (20:40)
[2024-03-17] MEDS: METOPROLOL TARTRATE 100MG TAB PO SCH (20:42)
[2024-03-18] VITALS (8 sets, daily range): BP systolic 129–189; BP diastolic 77–92; TEMP 96.9–98.7; O2SAT 91–93
[2024-03-18] MEDS: hydrALAZINE 20MG/ML 1ML VIAL IV ONE (04:25)
[2024-03-18 04:54] LABS: BASO % 0.1 % (0.0-1.0); HEMATOCRIT 41.5 % (36.0-47.0); HEMOGLOBIN 13.5 g/dl (12.0-15.5); LYMPH # 1.5 10^3/uL (1.5-5.0); LYMPH % 8.5 % (24.0-44.0); MEAN CORPUSCULAR HEMOGLOBIN 28.6 pg (27.0-33.0); MEAN CORPUSCULAR HGB CONC 32.5 g/dl (32.0-36.5); MEAN CORPUSCULAR VOLUME 87.9 fl (80.0-96.0); MONO # 0.3 10^3/uL (0.0-0.8); MONO % 1.7 % (2.0-8.0); NEUTROPHILS # 15.2 10^3/uL (1.5-8.5); NEUTROPHILS % 87.5 % (36.0-66.0); PLATELET COUNT, AUTOMATED 443 10^3/uL (150-450); RED BLOOD COUNT 4.72 10^6/uL (4.00-5.40); WHITE BLOOD COUNT 17.3 10^3/uL (4.0-10.0)
[2024-03-18 05:21] LABS: BLOOD UREA NITROGEN 29 MG/DL (9-23); CARBON DIOXIDE LEVEL 30 MMOL/L (20-31); CHLORIDE LEVEL 105 MMOL/L (98-107); CREATININE FOR GFR 0.86 MG/DL (0.55-1.30); GLOMERULAR FILTRATION RATE > 60.0 (>39); GLUCOSE, FASTING 144 MG/DL (74-106); POTASSIUM SERUM 4.8 MMOL/L (3.5-5.1); SODIUM LEVEL 144 MMOL/L (136-145)
[2024-03-18] MEDS ORDERED: METOPROLOL TARTRATE 100MG TAB PO ONE (09:15)
[2024-03-18] MEDS: METOPROLOL TARTRATE 100MG TAB PO SCH (09:42)
[2024-03-18] MEDS: FUROSEMIDE 40MG/4ML VIAL IV ONE (19:31)
[2024-03-19 05:16] VITALS: BP 149/83; TEMP 97; O2SAT 92
[2024-03-19 08:08] VITALS: BP 134/78; TEMP 97.1; O2SAT 93
[2024-03-19 08:18] LABS: BASO # 0.1 10^3/uL (0.0-0.2); BASO % 0.3 % (0.0-1.0); EOS % 0.1 % (0.0-3.0); HEMATOCRIT 45.9 % (36.0-47.0); HEMOGLOBIN 14.8 g/dl (12.0-15.5); LYMPH # 3.4 10^3/uL (1.5-5.0); LYMPH % 17.4 % (24.0-44.0); MEAN CORPUSCULAR HGB CONC 32.2 g/dl (32.0-36.5); MEAN CORPUSCULAR VOLUME 86.8 fl (80.0-96.0); MONO # 1.4 10^3/uL (0.0-0.8); MONO % 7.4 % (2.0-8.0); NEUTROPHILS # 14.1 10^3/uL (1.5-8.5); NEUTROPHILS % 72.4 % (36.0-66.0); PLATELET COUNT, AUTOMATED 519 10^3/uL (150-450); RED BLOOD COUNT 5.29 10^6/uL (4.00-5.40); WHITE BLOOD COUNT 19.5 10^3/uL (4.0-10.0)
[2024-03-19 08:31] VITALS: BP 134/78
[2024-03-19] MEDS: CEFDINIR 300 MG CAP (OMNICEF) PO SCH (08:31)
[2024-03-19] MEDS: predniSONE 20 MG TAB PO SCH (08:31)
[2024-03-19] MEDS ORDERED: CETI10TA PO (08:37)
[2024-03-19] MEDS ORDERED: DOXY100T PO (08:37)
[2024-03-19] MEDS ORDERED: FLUTISP NARES (08:37)
[2024-03-19] MEDS ORDERED: PRED20TA PO (08:37)
[2024-03-19] MEDS ORDERED: PRED10TA2 PO (08:37)
[2024-03-19] MEDS ORDERED: MUCI600T31 PO (08:37)
[2024-03-19] MEDS ORDERED: ALBU8.5H INH (08:37)
[2024-03-19] MEDS ORDERED: ELIQ5TAB PO (08:37)
[2024-03-19] MEDS ORDERED: CEFD300CAP PO (08:37)
[2024-03-19] MEDS ORDERED: LOPR1TAB7 PO (08:37)
[2024-03-19] MEDS ORDERED: MONT10TA97 PO (08:37)
[2024-03-19 08:41] LABS: CALCIUM LEVEL 9.2 MG/DL (8.3-10.6); CREATININE FOR GFR 1.25 MG/DL (0.55-1.30); GLOMERULAR FILTRATION RATE 44.2 (>39); MAGNESIUM LEVEL 2.1 MG/DL (1.8-2.4); POTASSIUM SERUM 4.6 MMOL/L (3.5-5.1)
[2024-03-19 19:26] LABS: URINE STREP PNEUMONIAE ANTIGEN NOT DETECTED (NOT DETECT)
[2024-03-20 18:02] LABS: MYCOPLASMA PNEUMONIAE IGG 2.59 (<=0.90)
== END 2024-03-19 11:03 | disposition home or self-care (01) | DRG 194 ==
LOC: EDBD 03:56 → M ED 03:56 → M ED INP 09:47 → M PCU 12:18
PROVIDERS: ADMIT General Practice; ATTEND General Practice
PROC: B246ZZZ Ultrasonography of Right and Left Heart (ICD-10-PCS; principal; 2024-03-15)
DX: J18.9 Pneumonia, unspecified organism (principal); J44.0 Chronic obstructive pulmonary disease with (acute) lower respiratory infection; I48.21 Permanent atrial fibrillation; J44.1 Chronic obstructive pulmonary disease with (acute) exacerbation; J98.11 Atelectasis; J90 Pleural effusion, not elsewhere classified; E03.9 Hypothyroidism, unspecified; I10 Essential (primary) hypertension; M54.9 Dorsalgia, unspecified; G89.29 Other chronic pain; I36.1 Nonrheumatic tricuspid (valve) insufficiency; K44.9 Diaphragmatic hernia without obstruction or gangrene; Z87.891 Personal history of nicotine dependence; Z79.899 Other long term (current) drug therapy; Z88.5 Allergy status to narcotic agent; Z88.8 Allergy status to other drugs, medicaments and biological substances; Z95.0 Presence of cardiac pacemaker

== ENCOUNTER 2024-04-22 09:48 | Inpatient (IN) | payer MEDICARE ==
[~2024-04-22] VITALS: Ht 160 cm; Wt 61.1 kg
[~2024-04-22 09:48] MED LIST changes: +ALBU8.5H INH; +CEFD300CAP PO; +CETI10TA PO; +DOXY100T PO; +FLUTISP NARES; +LOPR1TAB7 PO; +METO1TAB87 PO; +MONT10TA97 PO; +MUCI600T31 PO; +PRED10TA2 PO; +PRED20TA PO; +PROA1AER2 INH; +STIO1AER INH
[2024-04-22] MEDS ORDERED: FURO20TA2 (10:29)
[2024-04-22] MEDS ORDERED: METO1TAB87 (10:29)
[2024-04-22 10:31] LABS: VENOUS BASE EXCESS -0.6 (-2.0-2.0); VENOUS HCO3 26.9 MMOL/L (23.0-27.0); VENOUS O2 SATURATION 45.6 % (60.0-80.0); VENOUS PARTIAL PRESSURE CO2 55.2 mmHg (38.0-50.0); VENOUS PARTIAL PRESSURE O2 26.9 mmHg (30.0-50.0); VENOUS PH 7.305 UNITS (7.330-7.430); VENOUS STANDARD HCO3 22.7 MMOL/L; VENOUS TOTAL CO2 28.6 MMOL/L (24.0-28.0)
[2024-04-22 10:34] LABS: BASO # 0.1 10^3/uL (0.0-0.2); BASO % 0.8 % (0.0-1.0); EOS # 0.1 10^3/uL (0.0-0.5); EOS % 0.5 % (0.0-3.0); HEMATOCRIT 44.1 % (36.0-47.0); HEMOGLOBIN 14.2 g/dl (12.0-15.5); LYMPH # 1.7 10^3/uL (1.5-5.0); LYMPH % 14.8 % (24.0-44.0); MEAN CORPUSCULAR HGB CONC 32.2 g/dl (32.0-36.5); MONO # 0.6 10^3/uL (0.0-0.8); MONO % 4.9 % (2.0-8.0); NEUTROPHILS # 8.9 10^3/uL (1.5-8.5); NEUTROPHILS % 78.6 % (36.0-66.0); PLATELET COUNT, AUTOMATED 376 10^3/uL (150-450); WHITE BLOOD COUNT 11.3 10^3/uL (4.0-10.0)
[2024-04-22] MEDS: METOPROLOL 5 MG/5 ML VIAL IV SCH ×2 (10:38→17:52)
[2024-04-22 11:00] LABS: CK-MB VALUE MASS 1.7 NG/ML (<3.6)
[2024-04-22 11:03] LABS: BILIRUBIN,DIRECT 0.2 MG/DL (<0.4); BILIRUBIN,TOTAL 0.5 MG/DL (0.3-1.2); CALCIUM LEVEL 9.5 MG/DL (8.3-10.6); CREATININE FOR GFR 1.18 MG/DL (0.55-1.30); GLOMERULAR FILTRATION RATE 47.3 (>39); MB/CK RELATIVE INDEX 2.74 (< OR =4); POTASSIUM SERUM 4.4 MMOL/L (3.5-5.1); TOTAL PROTEIN 7.9 G/DL (5.7-8.2)
[2024-04-22 11:05] LABS: THYROXINE (T4) 9.1 UG/DL (4.5-10.9)
[2024-04-22 11:06] LABS: THYROID STIMULATING HORMONE 0.755 uIU/ML (0.55-4.78)
[2024-04-22 11:09] LABS: PROCALCITONIN 0.12 ng/ml
[2024-04-22] MEDS ORDERED: ISOVUE-370 76% 100ML VIAL As Ordered ONE (11:18)
[2024-04-22] MEDS: METOPROLOL TART 25 MG TABLET PO ONE ×2 (11:25→16:34)
[2024-04-22 12:05] LABS: CK-MB VALUE MASS 1.1 NG/ML (<3.6)
[2024-04-22 12:07] LABS: MB/CK RELATIVE INDEX 1.96 (< OR =4)
[2024-04-22] MEDS ORDERED: FLON1SPR (14:03)
[2024-04-22] MEDS ORDERED: ELIQ5TAB PO (14:03)
[2024-04-22] MEDS ORDERED: METO25TA4 PO (14:03)
[2024-04-22] MEDS ORDERED: HOME MED LIST COMPLETE! XX SCH (14:05)
[2024-04-22] MEDS: MIDODRINE 5 MG TAB PO ONE ×2 (14:05→16:34)
[2024-04-22] MEDS: LR 1,000 ML IV ONE (14:07)
[2024-04-22] MEDS: DIGOXIN INJ 0.5 MG/2 ML AMP IV SCH (14:07)
[2024-04-22] MEDS: METOPROLOL TART 12.5 MG PER 1/2 TAB PO SCH (15:26)
[2024-04-22] MEDS ORDERED: guaiFENesin DM LIQ 10ML UD PO PRN (15:50)
[2024-04-22 16:18] VITALS: BP 132/95; TEMP 96.9; O2SAT 96
[2024-04-22] MEDS: BENZONATATE 100MG CAPSULE PO ONE (16:33)
[2024-04-22] MEDS: MONTELUKAST 10 MG TAB PO ONE (16:33)
[2024-04-22] MEDS: CETIRIZINE (ZyrTEC) 10 MG TAB PO ONE (16:34)
[2024-04-22] MEDS ORDERED: IPRATROPIUM HFA INHALER 12.9 GRAMS (ATROVENT HFA) INH PRN (16:35)
[2024-04-22] MEDS: guaiFENesin DM LIQ 10ML UD PO SCH (16:35)
[2024-04-22] MEDS ORDERED: LEVALBUTEROL 1.25MG 0.5ML CONCENTRATE NEB INH PRN (16:35)
[2024-04-22] MEDS: DIGOXIN INJ 0.5 MG/2 ML AMP IV STA (16:39)
[2024-04-22 17:45] VITALS: BP 155/77
[2024-04-22] MEDS: guaiFENesin ER TABLET 600 MG TAB PO ONE (17:55)
[2024-04-22 20:30] VITALS: BP 125/57; TEMP 98; O2SAT 95
[2024-04-22] MEDS: APIXABAN 5 MG TAB (ELIQUIS) PO SCH (21:23)
[2024-04-22] MEDS: METOPROLOL TART 50 MG TAB PO SCH (21:23)
[2024-04-23] VITALS (13 sets, daily range): BP systolic 94–169; BP diastolic 53–76; TEMP 97.1–98.2; O2SAT 93–99
[2024-04-23] MEDS ORDERED: DIGOXIN INJ 0.5 MG/2 ML AMP IV ONE
[2024-04-23] MEDS: BENZONATATE 100MG CAPSULE PO SCH (00:24)
[2024-04-23 05:47] LABS: BASO # 0.1 10^3/uL (0.0-0.2); EOS # 0.2 10^3/uL (0.0-0.5); EOS % 2.6 % (0.0-3.0); HEMATOCRIT 34.4 % (36.0-47.0); LYMPH # 2.5 10^3/uL (1.5-5.0); LYMPH % 27.7 % (24.0-44.0); MEAN CORPUSCULAR HEMOGLOBIN 28.8 pg (27.0-33.0); MEAN CORPUSCULAR VOLUME 90.1 fl (80.0-96.0); MONO # 0.7 10^3/uL (0.0-0.8); MONO % 7.5 % (2.0-8.0); NEUTROPHILS # 5.6 10^3/uL (1.5-8.5); NEUTROPHILS % 60.8 % (36.0-66.0); PLATELET COUNT, AUTOMATED 334 10^3/uL (150-450); RED BLOOD COUNT 3.82 10^6/uL (4.00-5.40); WHITE BLOOD COUNT 9.2 10^3/uL (4.0-10.0)
[2024-04-23 06:07] LABS: DIGOXIN LEVEL 0.7 NG/ML (0.8-2.0)
[2024-04-23 06:16] LABS: CALCIUM LEVEL 8.4 MG/DL (8.3-10.6); CREATININE FOR GFR 1.16 MG/DL (0.55-1.30); GLOMERULAR FILTRATION RATE 48.2 (>39); POTASSIUM SERUM 4.8 MMOL/L (3.5-5.1)
[2024-04-23] MEDS: MIDODRINE 5 MG TAB PO ONE ×2 (06:28→11:09)
[2024-04-23] MEDS: METOPROLOL TART 50 MG TAB PO ONE (06:32)
[2024-04-23] MEDS ORDERED: LOPR1TAB6 PO (07:14)
[2024-04-23] MEDS ORDERED: MIDO10TA3 PO (07:14)
[2024-04-23] MEDS ORDERED: DIGO0.123 PO (07:14)
[2024-04-23] MEDS ORDERED: BENZ-18 PO (07:14)
[2024-04-23] MEDS ORDERED: TALK1KIT MC (07:15)
[2024-04-23] MEDS: TIOTROPIUM INHALER/CAPSULE (SPIRIVA) INH SCH (07:41)
[2024-04-23] MEDS ORDERED: DIGOXIN 0.125 MG TAB PO SCH (09:00)
[2024-04-23] MEDS ORDERED: ENTER DRUG NAME HERE (PATIENT'S OWN MED) INH SCH (09:00)
[2024-04-23] MEDS: guaiFENesin ER TABLET 600 MG TAB PO SCH (09:34)
[2024-04-23] MEDS: MONTELUKAST 10 MG TAB PO SCH (09:34)
[2024-04-23] MEDS: DIGOXIN 0.125 MG TAB PO SCH (09:35)
[2024-04-23] MEDS: CETIRIZINE (ZyrTEC) 10 MG TAB PO SCH (09:36)
[2024-04-23] MEDS: FLUTICASONE PROP 0.05% NASAL SPRAY 16 GM (FLONASE) SCH (09:36)
[2024-04-23] MEDS: DIGOXIN INJ 0.5 MG/2 ML AMP IV STA (09:37)
[2024-04-23] MEDS: METOPROLOL TART 50 MG TAB PO SCH (11:08)
[2024-04-23] MEDS: PROMETHAZINE 25MG/ML 1ML VIAL IV ONE (11:08)
[2024-04-23] MEDS: NS 0.45% 1,000 ML IV ONE (14:10)
[2024-04-24 03:10] VITALS: BP 143/69; O2SAT 100
[2024-04-24 04:17] LABS: BASO # 0.1 10^3/uL (0.0-0.2); BASO % 0.8 % (0.0-1.0); EOS # 0.2 10^3/uL (0.0-0.5); EOS % 1.7 % (0.0-3.0); HEMATOCRIT 29.9 % (36.0-47.0); HEMOGLOBIN 9.5 g/dl (12.0-15.5); LYMPH # 2.9 10^3/uL (1.5-5.0); LYMPH % 26.4 % (24.0-44.0); MEAN CORPUSCULAR HEMOGLOBIN 28.8 pg (27.0-33.0); MEAN CORPUSCULAR HGB CONC 31.8 g/dl (32.0-36.5); MEAN CORPUSCULAR VOLUME 90.6 fl (80.0-96.0); MONO # 0.8 10^3/uL (0.0-0.8); MONO % 7.7 % (2.0-8.0); NEUTROPHILS # 6.8 10^3/uL (1.5-8.5); PLATELET COUNT, AUTOMATED 319 10^3/uL (150-450); WHITE BLOOD COUNT 10.8 10^3/uL (4.0-10.0)
[2024-04-24 04:35] LABS: CALCIUM LEVEL 8.1 MG/DL (8.3-10.6); CREATININE FOR GFR 1.09 MG/DL (0.55-1.30); GLOMERULAR FILTRATION RATE 51.8 (>39); MAGNESIUM LEVEL 1.9 MG/DL (1.8-2.4); POTASSIUM SERUM 4.6 MMOL/L (3.5-5.1)
[2024-04-24 06:17] VITALS: BP 100/57; O2SAT 96
[2024-04-24] MEDS: METOPROLOL TART 50 MG TAB PO ONE ×2 (06:18→10:05)
[2024-04-24] MEDS: MIDODRINE 5 MG TAB PO ONE ×2 (06:21→12:38)
[2024-04-24] MEDS: DIGOXIN 0.125 MG TAB PO STA (06:21)
[2024-04-24 07:56] VITALS: BP 118/60; TEMP 99; O2SAT 98
[2024-04-24 11:14] VITALS: BP 112/66; TEMP 98.2; O2SAT 97
[2024-04-24] MEDS: METOPROLOL TART 50 MG TAB PO SCH (12:00)
[2024-04-24 13:04] VITALS: BP 133/72; TEMP 97.2; O2SAT 100
[2024-04-24] MEDS: MEGESTROL 400MG 10ML SUSP ORAL SYRINGE *DRAW UP EXACT DOSE PO SCH (14:05)
[2024-04-24] MEDS ORDERED: guaiFENesin DM LIQ 10ML UD PO PRN (17:00)
[2024-04-24] MEDS: D5W 1,000 ML IV ONE (21:00)
[2024-04-24 22:32] VITALS: BP 154/74; TEMP 98.2; O2SAT 97
[2024-04-24 23:41] LABS: CREATININE FOR GFR 1.32 MG/DL (0.55-1.30); GLOMERULAR FILTRATION RATE 41.5 (>39)
[2024-04-25 05:05] LABS: BASO # 0.1 10^3/uL (0.0-0.2); BASO % 0.8 % (0.0-1.0); EOS # 0.2 10^3/uL (0.0-0.5); EOS % 1.8 % (0.0-3.0); HEMATOCRIT 28.4 % (36.0-47.0); HEMOGLOBIN 8.8 g/dl (12.0-15.5); LYMPH # 3.3 10^3/uL (1.5-5.0); LYMPH % 27.6 % (24.0-44.0); MEAN CORPUSCULAR HEMOGLOBIN 28.5 pg (27.0-33.0); MEAN CORPUSCULAR VOLUME 91.9 fl (80.0-96.0); MONO # 0.9 10^3/uL (0.0-0.8); MONO % 7.1 % (2.0-8.0); NEUTROPHILS # 7.5 10^3/uL (1.5-8.5); NEUTROPHILS % 61.8 % (36.0-66.0); PLATELET COUNT, AUTOMATED 329 10^3/uL (150-450); RED BLOOD COUNT 3.09 10^6/uL (4.00-5.40); WHITE BLOOD COUNT 12.1 10^3/uL (4.0-10.0)
[2024-04-25 05:13] VITALS: BP 118/53; TEMP 97.1
[2024-04-25 05:49] LABS: CALCIUM LEVEL 8.4 MG/DL (8.3-10.6); CREATININE FOR GFR 1.3 MG/DL (0.55-1.30); DIGOXIN LEVEL 1.1 NG/ML (0.8-2.0); GLOMERULAR FILTRATION RATE 42.3 (>39); MAGNESIUM LEVEL 1.9 MG/DL (1.8-2.4); POTASSIUM SERUM 4.2 MMOL/L (3.5-5.1)
[2024-04-25] MEDS: MIDODRINE 5 MG TAB PO ONE (08:54)
[2024-04-25] MEDS ORDERED: DIGOXIN 0.125 MG TAB PO SCH (09:00)
[2024-04-25 18:05] VITALS: BP 140/65
[2024-04-25] MEDS ORDERED: MEGE400O7 PO (18:17)
== END 2024-04-25 19:08 | disposition home or self-care (01) | DRG 866 ==
LOC: M ED 09:48 → M ED INP 12:59 → M PCU 16:10 → M MSPAV 04-24 12:51
PROVIDERS: ADMIT General Practice; ATTEND General Practice
DX: B34.2 Coronavirus infection, unspecified (principal); I48.21 Permanent atrial fibrillation; R53.1 Weakness; I10 Essential (primary) hypertension; E03.9 Hypothyroidism, unspecified; J44.9 Chronic obstructive pulmonary disease, unspecified; Z95.0 Presence of cardiac pacemaker; E86.0 Dehydration; Z87.891 Personal history of nicotine dependence; I95.1 Orthostatic hypotension; Z79.01 Long term (current) use of anticoagulants; K44.9 Diaphragmatic hernia without obstruction or gangrene; M54.50 Low back pain, unspecified; I36.0 Nonrheumatic tricuspid (valve) stenosis; Z79.899 Other long term (current) drug therapy; Z88.5 Allergy status to narcotic agent; Z88.8 Allergy status to other drugs, medicaments and biological substances

== ENCOUNTER 2024-06-09 06:24 | Inpatient (IN) | payer MEDICARE ==
[~2024-06-09] VITALS: Ht 160 cm; Wt 62.5 kg
[~2024-06-09 06:24] MED LIST changes: +BENZ-18 PO; +DIGO0.123 PO; +FLON1SPR; +FURO20TA2; +LOPR1TAB6 PO; +MEGE400O7 PO; +METO1TAB87; +METO25TA4 PO; +MIDO10TA3 PO; +TALK1KIT MC
[2024-06-09 07:06] LABS: BASO # 0.1 10^3/uL (0.0-0.2); BASO % 1.3 % (0.0-1.0); EOS # 0.2 10^3/uL (0.0-0.5); EOS % 2.1 % (0.0-3.0); HEMATOCRIT 42.9 % (36.0-47.0); HEMOGLOBIN 13.5 g/dl (12.0-15.5); LYMPH # 1.2 10^3/uL (1.5-5.0); LYMPH % 13.2 % (24.0-44.0); MEAN CORPUSCULAR HEMOGLOBIN 29.4 pg (27.0-33.0); MEAN CORPUSCULAR HGB CONC 31.5 g/dl (32.0-36.5); MEAN CORPUSCULAR VOLUME 93.5 fl (80.0-96.0); MONO # 0.7 10^3/uL (0.0-0.8); MONO % 8.2 % (2.0-8.0); NEUTROPHILS # 6.6 10^3/uL (1.5-8.5); NEUTROPHILS % 74.6 % (36.0-66.0); PLATELET COUNT, AUTOMATED 358 10^3/uL (150-450); RED BLOOD COUNT 4.59 10^6/uL (4.00-5.40); WHITE BLOOD COUNT 8.8 10^3/uL (4.0-10.0)
[2024-06-09 07:35] LABS: ALBUMIN 3.6 G/DL (3.2-5.2); BILIRUBIN,DIRECT 0.1 MG/DL (<0.4); BILIRUBIN,TOTAL 0.4 MG/DL (0.3-1.2); CALCIUM LEVEL 8.5 MG/DL (8.3-10.6); CREATININE FOR GFR 1.22 MG/DL (0.55-1.30); GLOMERULAR FILTRATION RATE 45.4 (>39); POTASSIUM SERUM 4.4 MMOL/L (3.5-5.1); TOTAL PROTEIN 6.7 G/DL (5.7-8.2)
[2024-06-09 09:34] LABS: CK-MB VALUE MASS 2.6 NG/ML (<3.6)
[2024-06-09 09:37] LABS: MB/CK RELATIVE INDEX 2.28 (< OR =4)
[2024-06-09] MEDS: METOPROLOL 5 MG/5 ML VIAL IV STA ×3 (09:38→11:46)
[2024-06-09] MEDS ORDERED: ISOVUE-370 76% 100ML VIAL As Ordered ONE (09:50)
[2024-06-09 10:20] LABS: CK-MB VALUE MASS 1.9 NG/ML (<3.6); MB/CK RELATIVE INDEX 2.11 (< OR =4)
[2024-06-09 11:38] LABS: MAGNESIUM LEVEL 2.1 MG/DL (1.8-2.4)
[2024-06-09] MEDS: IPRATROPIUM 0.5MG/ALBUTEROL 2.5MG INH SOL UD 3ML NEB PRN (11:53)
[2024-06-09 11:58] LABS: KETONE, URINE AUTO RFX NEGATIVE (NEGATIVE); LEUKOCYTE ESTERASE UR AUTO RFX NEGATIVE (NEGATIVE); NITRITE, URINE AUTO RFX NEGATIVE (NEGATIVE); RBC, URINE AUTO RFX 0 /HPF (0-3); SQUAM EPITHELIAL CELL UR AURFX 0 /HPF (0-6); WBC, URINE AUTO RFX 1 /HPF (0-3)
[2024-06-09] MEDS: DIGOXIN INJ 0.5 MG/2 ML AMP IV STA (11:58)
[2024-06-09] MEDS: METOPROLOL TART 50 MG TAB PO SCH (12:00)
[2024-06-09] MEDS: PIPERACILLIN/TAZOBACTAM SOD 4.5 GM in DEXTROSE 5% (D5W) ADV/MINI-BAG 50 ML IV ONE (12:54)
[2024-06-09] MEDS ORDERED: IPRA0.00 INH (13:21)
[2024-06-09] MEDS ORDERED: HOME MED LIST COMPLETE! XX SCH (13:25)
[2024-06-09 14:34] VITALS: BP 170/104; TEMP 98.3; O2SAT 93
[2024-06-09 15:55] VITALS: BP 138/74; TEMP 97.2; O2SAT 95
[2024-06-09] MEDS: DIGOXIN INJ 0.5 MG/2 ML AMP IV ONE (18:11)
[2024-06-09 20:11] VITALS: BP 139/84; TEMP 97.9; O2SAT 96
[2024-06-09] MEDS: APIXABAN 5 MG TAB (ELIQUIS) PO SCH (20:15)
[2024-06-09] MEDS: ADVAIR HFA 115/21MCG INHALER INH SCH (20:37)
[2024-06-09 23:25] VITALS: BP 130/64; TEMP 97.7; O2SAT 95
[2024-06-10 03:48] VITALS: BP 158/64; TEMP 97.6
[2024-06-10 05:01] LABS: HEMATOCRIT 38.2 % (36.0-47.0); MEAN CORPUSCULAR HGB CONC 31.4 g/dl (32.0-36.5); MEAN CORPUSCULAR VOLUME 92.3 fl (80.0-96.0); PLATELET COUNT, AUTOMATED 295 10^3/uL (150-450); RED BLOOD COUNT 4.14 10^6/uL (4.00-5.40); WHITE BLOOD COUNT 8.3 10^3/uL (4.0-10.0)
[2024-06-10 05:18] LABS: CALCIUM LEVEL 8.4 MG/DL (8.3-10.6); CREATININE FOR GFR 0.97 MG/DL (0.55-1.30); GLOMERULAR FILTRATION RATE 59.8 (>39); POTASSIUM SERUM 4.5 MMOL/L (3.5-5.1)
[2024-06-10 07:24] VITALS: BP 154/80; TEMP 98.9; O2SAT 99
[2024-06-10] MEDS: FLUTICASONE PROP 0.05% NASAL SPRAY 16 GM (FLONASE) SCH (09:30)
[2024-06-10] MEDS: DIGOXIN 0.125 MG TAB PO STA (11:14)
[2024-06-10] MEDS: FUROSEMIDE 20MG/2ML VIAL IV ONE (11:15)
[2024-06-10 12:00] VITALS: BP 158/78; TEMP 97; O2SAT 97
[2024-06-10 17:38] VITALS: BP 164/70; TEMP 97.9; O2SAT 96
[2024-06-10 20:06] VITALS: BP 158/72; TEMP 97.3; O2SAT 97
[2024-06-10 23:01] VITALS: BP 148/84; TEMP 98.3; O2SAT 93
[2024-06-11] VITALS (7 sets, daily range): BP systolic 104–158; BP diastolic 68–96; TEMP 97.8–98.6; O2SAT 90–97
[2024-06-11 08:03] LABS: BASO # 0.1 10^3/uL (0.0-0.2); BASO % 0.9 % (0.0-1.0); EOS # 0.4 10^3/uL (0.0-0.5); HEMATOCRIT 40.2 % (36.0-47.0); HEMOGLOBIN 12.8 g/dl (12.0-15.5); LYMPH # 1.6 10^3/uL (1.5-5.0); LYMPH % 21.2 % (24.0-44.0); MEAN CORPUSCULAR HGB CONC 31.8 g/dl (32.0-36.5); MONO # 0.7 10^3/uL (0.0-0.8); MONO % 9.8 % (2.0-8.0); NEUTROPHILS # 4.7 10^3/uL (1.5-8.5); NEUTROPHILS % 62.8 % (36.0-66.0); PLATELET COUNT, AUTOMATED 296 10^3/uL (150-450); RED BLOOD COUNT 4.42 10^6/uL (4.00-5.40); WHITE BLOOD COUNT 7.5 10^3/uL (4.0-10.0)
[2024-06-11 08:22] LABS: CALCIUM LEVEL 8.5 MG/DL (8.3-10.6); CREATININE FOR GFR 1.02 MG/DL (0.55-1.30); GLOMERULAR FILTRATION RATE 56.3 (>39); MAGNESIUM LEVEL 1.8 MG/DL (1.8-2.4)
[2024-06-11] MEDS: DIGOXIN 0.125 MG TAB PO SCH (08:59)
[2024-06-11] MEDS: DIGOXIN 0.125 MG TAB PO STA (12:06)
[2024-06-11] MEDS: MORPHINE 4 MG/ML 1ML VIAL IV ONE (15:25)
[2024-06-11] MEDS: ONDANSETRON 4MG 2ML VIAL IV ONE (15:25)
[2024-06-11 15:54] LABS: MB/CK RELATIVE INDEX 1.88 (< OR =4)
[2024-06-11] MEDS: PANTOPRAZOLE 40MG TAB (PROTONIX) PO SCH (20:40)
[2024-06-12] VITALS (24 sets, daily range): BP systolic 117–151; BP diastolic 66–90; TEMP 97.8–98.2; O2SAT 82–97
[2024-06-12 07:11] LABS: CALCIUM LEVEL 8.3 MG/DL (8.3-10.6); CREATININE FOR GFR 1.01 MG/DL (0.55-1.30)
[2024-06-12] MEDS ORDERED: DIGO0.123 PO (10:38)
[2024-06-12] MEDS ORDERED: LOPR1TAB6 PO (10:38)
[2024-06-12] MEDS ORDERED: LASI20TA3 PO (10:38)
== END 2024-06-12 15:04 | disposition home or self-care (01) | DRG 309 ==
LOC: M ED 06:24 → M ED INP 11:31 → M PCU 14:25
PROVIDERS: ADMIT Internal Medicine; ATTEND Internal Medicine
DX: I48.11 Longstanding persistent atrial fibrillation (principal); I50.30 Unspecified diastolic (congestive) heart failure; J44.9 Chronic obstructive pulmonary disease, unspecified; E04.1 Nontoxic single thyroid nodule; Z95.0 Presence of cardiac pacemaker; I27.20 Pulmonary hypertension, unspecified; Z79.899 Other long term (current) drug therapy; Z88.5 Allergy status to narcotic agent; Z88.8 Allergy status to other drugs, medicaments and biological substances

== ENCOUNTER → 2024-06-22 | Outpatient (REF) | payer MEDICARE ==
[~2024-06-22] MED LIST changes: +IPRA0.00 INH; +LASI20TA3 PO
[2024-06-22 17:59] LABS: BASO # 0.1 10^3/uL (0.0-0.2); BASO % 1.2 % (0.0-1.0); EOS # 0.1 10^3/uL (0.0-0.5); EOS % 1.1 % (0.0-3.0); HEMATOCRIT 45.3 % (36.0-47.0); HEMOGLOBIN 14.1 g/dl (12.0-15.5); LYMPH # 1.8 10^3/uL (1.5-5.0); LYMPH % 22.4 % (24.0-44.0); MEAN CORPUSCULAR HEMOGLOBIN 28.3 pg (27.0-33.0); MEAN CORPUSCULAR HGB CONC 31.1 g/dl (32.0-36.5); MEAN CORPUSCULAR VOLUME 90.8 fl (80.0-96.0); MONO # 0.8 10^3/uL (0.0-0.8); MONO % 9.5 % (2.0-8.0); NEUTROPHILS # 5.3 10^3/uL (1.5-8.5); NEUTROPHILS % 65.7 % (36.0-66.0); PLATELET COUNT, AUTOMATED 280 10^3/uL (150-450); RED BLOOD COUNT 4.99 10^6/uL (4.00-5.40)
[2024-06-22 18:21] LABS: DIGOXIN LEVEL 1.1 NG/ML (0.8-2.0)
[2024-06-22 18:24] LABS: CALCIUM LEVEL 11.1 MG/DL (8.3-10.6); CHOLESTEROL RISK RATIO 3.62 (<5); CREATININE FOR GFR 1.51 MG/DL (0.55-1.30); GLOMERULAR FILTRATION RATE 35.2 (>39); HDL CHOLESTEROL 58.2 MG/DL (>40); LDL CHOLESTEROL 120.8 MG/DL (<100); NON-HDL-C 152.8 MG/DL; POTASSIUM SERUM 3.5 MMOL/L (3.5-5.1); THYROID STIMULATING HORMONE 0.294 uIU/ML (0.55-4.78)
== END ==
LOC: M LAB REF 17:23
PROVIDERS: ATTEND Nurse Practitioner Family
DX: I48.20 Chronic atrial fibrillation, unspecified (principal); Z13.6 Encounter for screening for cardiovascular disorders; Z13.29 Encounter for screening for other suspected endocrine disorder; B99.9 Unspecified infectious disease; Z79.899 Other long term (current) drug therapy

== ENCOUNTER → 2024-09-26 | Outpatient (CLI) | payer MEDICARE | LOC: M RAD 12:16 | PROVIDERS: ATTEND Nurse Practitioner Family | DX: E04.1 Nontoxic single thyroid nodule (principal) ==